=== PATIENT | female | born 1995 | race Caucasian/White ===

== ENCOUNTER 2017-01-13 21:41 | Emergency (ER) | payer OTHER ==
[~2017-01-13] VITALS: Ht 170.2 cm; Wt 90.9 kg
[2017-01-13 22:11] VITALS: BP 113/64; PULSE 116; RESP 12; O2SAT 98
--- NOTE | 2017-01-13 22:19 | ED.REPORT ---
HPI-Back Pain Under 40 Date of Service Jan 13, 2017 ED Provider: Sylvester Zarate DO The patient is a 21 year old female presenting to the ED complaining of bilateral flank pain onset 5 days ago. She claims that the pain got worse yesterday and has been constant since. The patient denies any radiation to the front unless she is wearing tight pants. She says that she is 6 or 7 weeks . Associated symptoms include lightheadedness, nausea, headache, and vomiting. Denied symptoms include dysuria, abnormal vaginal bleedingor discharge , hematuria, cough, or diarrhea. Nursing Notes Stated Complaint: CHRONIC BACK PAIN, NAUSEA, HEADACHE, 6 WKS PREG Chief Complaint: Back Pain or Injury Nursing Notes Reviewed: Yes Allergies: Coded Allergies: No Known Allergies (Unverified , 01/13/17) Scheduled Cephalexin (Keflex) 500 Mg Capsule 500 MG PO QID Scheduled PRN Metoclopramide (Reglan) 10 Mg Tablet 10 MG PO QID PRN PRN For Nausea/Vomiting General Time Seen by MD: 22:19 Chief Complaint Back pain (lower back pain) Hx Obtained From: Patient Arrived By: Walk-in Sudden in Onset?: Yes Onset Occurred: 5 days ago Symptom Duration: Constant Location: : Flank bilateral Quality: Painful Recent Healthcare: No recent doctor visit, No recent hospitalization Similar Sx Previous: No Past Medical History Past Medical History None reported Past Surgical History Denies Smoking History Never Smoker Social History Alcohol Use: Denies alcohol use Drug Use: Denies drug use Other Social History: Good social support Ambulatory Status Independent Review of Systems Respiratory: Denies: Non-productive cough GI: Reports: Nausea, Vomiting, Denies: Diarrhea Female: Denies: Dysuria, Hematuria, Vaginal bleeding - abnl Musculoskeletal: Reports: Back pain Neurologic: Reports: Headache, Lightheaded Complete sys rev & neg: except as marked. Physical Exam Initial Vital Signs Vital Signs (First) Date Time Temp Pulse Resp B/P Pulse Ox O2 Delivery O2 Flow Rate FiO2 01/13/17 22:11 37.5 116 12 113/64 98 Room Air Initial VS: Reviewed, Vital signs normal Head / Eyes: Atraumatic, Normocephalic Lymphatic: No lymphadenopathy Extremities: Vascular intact, Neuro intact Skin: Warm, Dry General/Constitutional: Awake, Alert Distress / Hydration: Positive: Distress mild Mildly uncomfortable Back: Atraumatic, Inspection NL, No CVA tenderness tenderness to palpation at the T/L junction across the back Neurologic: Oriented X3, Speech NL, No motor deficits Neck: Atraumatic, Supple, Full range of motion Respiratory / Chest: Atraumatic, Breath sounds NL, Breath sounds = bilat, No respiratory distress Cardiovascular: Regular rhythm, Heart sounds NL Heart Rate / Rhythm: Positive: Tachycardia Abdomen: Atraumatic, Soft, Non-tender, No guarding, No rebound Interpretation & Diagnostics US: IUP 10 weeks hr 190. Right ovary corpus luteal cyst, no stone, no hydro. Lab Results Interpretation Result Diagram: 01/13/17 2256 01/13/17 2256 Test 01/13/17 22:56 01/13/17 23:07 White Blood Count 12.2th/mm3 (3.8-10.1) Red Blood Count 4.37mil/mm3 (3.90-5.20) Hemoglobin 13.2g/dL (12.0-15.6) Hematocrit 37.3% (35.0-46.0) Mean Corpuscular Volume 85.4fL (81-100) Mean Corpuscular Hemoglobin 30.2pg (27.0-35.0) Mean Corpuscular Hemoglobin Concent 35.4% (32.0-37.0) Red Cell Distribution Width 12.3% (12.3-15.4) Platelet Count 212bil/L (150-400) Neutrophils (%) (Auto) 81.1% (40-74) Lymphocytes (%) (Auto) 11.5% (14-46) Monocytes (%) (Auto) 6.9% (4-12) Eosinophils (%) (Auto) 0.2% (0-5) Basophils (%) (Auto) 0.1% (0-3) Sodium Level 133mEq/L (134-144) Potassium Level 3.3mEq/L (3.5-5.2) Chloride Level 97mEq/L (97-108) Carbon Dioxide Level 22mmol/L (18-29) Blood Urea Nitrogen 6mg/dL (6-20) Creatinine 0.55mg/dL (0.57-1.00) Estimat Glomerular Filtration Rate 198mL/min (>59) Glucose Level 91mg/dL (60-99) Calcium Level 9.0mg/dL (8.5-10.1) Magnesium Level 1.7mg/dL (1.6-2.6) Total Bilirubin 0.9mg/dL (0.0-1.2) Aspartate Amino Transf (AST/SGOT) 26U/L (0-50) Alanine Aminotransferase (ALT/SGPT) 20U/L (0-32) Alkaline Phosphatase 81U/L (25-150) Total Protein 7.3g/dL (6.4-8.4) Albumin 4.1g/dL (3.4-5.0) Lipase 18U/L (13-60) HCG Beta Subunit [id number]/mL Urine Color Yellow (YELLOW) Urine Appearance Cloudy (CLEAR,HAZY) Urine pH 6.0 (5.0-8.0) Urine Specific [place] 1.015 (1.003-1.035) Urine Protein 100mg/dL (NEG,TRACE) Urine Glucose (UA) Negativemg/dL (NEGATIVE) Urine Ketones 15mg/dL (NEGATIVE) Urine Occult Blood Moderate (NEGATIVE) Urine Nitrite Negative (NEGATIVE) Urine Bilirubin Negative (NEGATIVE) Urine Urobilinogen Normalmg/dL (NORMAL) Urine Leukocyte Esterase Large (NEGATIVE) Urine RBC 3-10/hpf (0-2) Urine WBC Packed/hpf (0-5) Urine Epithelial Cells Moderate/hpf (NONE-MOD) Urine Crystals None seen (NONE SEEN) Urine Bacteria Moderate/hpf (NONE-FEW) Urine Hyaline Casts None/lpf (NONE) Urine Granular Casts None seen (NONE SEEN) Urine Waxy Casts None seen (NONE SEEN) Urine Red Blood Cell Casts None seen (NONE SEEN) Urine White Blood Cell Casts None seen (NONE SEEN) Urine Mucus None seen (None Seen) Urine Trichomonas None seen (NONE SEEN) Urine Yeast None (NONE SEEN) Urinalysis Comment None Urine Culture Reflexed Indicated Re-Eval/Medical Decision Med Decision/Clinical Course Likely pyelonephritis in the setting of first trimester . Urine is infected low-grade white blood cell count elevation mild tachycardia. Vomiting is resolved after 1 dose of Reglan. Patient will be given 2 g of IV Rocephin. Ultrasound shows intrauterine without significant hydronephrosis. Patient will be discharged with Keflex and Reglan. Return and follow-up precautions given. Re-Evaluation/Progress : Time of Eval: 01:39 Re-Evaluation/Progress Note: Patient rechecked. She is feeling better and claims she has not vomited. Discussed plan to discharge. She understands and agrees with the plan. All questions addressed at this time. Counseled Regarding: Diagnosis, Lab results, Need for follow-up, When/why to return to ED Discharge & Departure Impression: Primary Impression: First trimester Additional Impression: Pyelonephritis affecting Disposition: Home All VS Reviewed: Yes Condition: Improved Additional Instructions: You have a kidney infection. Take Keflex as prescribed. Use Reglan as needed for nausea and vomiting. Follow up with your [employer] in 2 days as planned. Return to the ER as needed for fever, persistent vomiting, worsening pain, or other concerns. [employer] Attestation Portions of this note were transcribed by Titi Hernandez. I, Dr. Zarate personally performed the history, physical exam and medical decision-making; I reviewed and confirmed the accuracy of the information in the transcribed note. Signed by: Rick Arroyo, 01/13/2017 Sylvester Zarate DO Jan 13, 2017 22:19 Jan 13, 2017 22:28
[2017-01-13] MEDS ORDERED: 0.9% Sodium Chloride 1,000 ML IV ONE (22:24)
[2017-01-13] MEDS ORDERED: MetoCLOpramide 5 mg/mL 2 mL Inj IVPUSH ONE (22:25)
[2017-01-13 23:05] LABS: BASOPHILS % (AUTO) 0.1 % (0-3); EOSINOPHILS % (AUTO) 0.2 % (0-5); MONOCYTES % (AUTO) 6.9 % (4-12); Mean Corpuscular Hemoglobin 30.2 pg (27.0-35.0); Mean Corpuscular Volume 85.4 fL (81-100); NEUTROPHILS % (AUTO) 81.1 % (40-74); Platelet Count 212 bil/L (150-400)
[2017-01-13 23:19] LABS: APPEARANCE,URINE CLOUDY (CLEAR,HAZY); COLOR,URINE YELLOW (YELLOW); OCCULT BLOOD,URINE MODERATE (NEGATIVE); UROBILINOGEN,URINE NORMAL (NORMAL)
[2017-01-13 23:39] LABS: Magnesium 1.7 mg/dL (1.6-2.6)
[2017-01-14] MEDS ORDERED: cefTRIAXone Inj 2,000 MG in Dextrose 5% Minibag Plus 50 ML IV ONE (00:40)
[2017-01-14 01:46] VITALS: BP 131/61; PULSE 99
[2017-01-14] MEDS ORDERED: CEPH-512 PO (01:47)
[2017-01-14] MEDS ORDERED: METO-301 PO (01:47)
--- NOTE | 2017-01-14 10:42 | DRSVH ---
PROCEDURE: US OB<14 WKS+OB TRANSVAG INDICATIONS: bilateral flank pain, eval for IUP also OUTSIDE/PRIOR DATING DATA: Last menstrual period (LMP): Unknown. LMP-based estimated date of delivery (CASEY): Unknown. First dating scan (date and location): 01/14/17. Estimated date of delivery (CASEY) from first dating scan: 08/08/17. TECHNIQUE: Real-time scanning was performed of the fetus and maternal pelvic organs, with image documentation. Endovaginal scanning was also performed to better visualize the fetus and maternal ovaries. COMPARISON: None. FINDINGS: Embryo: An intrauterine is identified with heart tones of 190 beats per minute. [place] -rump length measures 3.7 cm corresponding to 10 weeks 4 days. Measurement variability in dating: +/- 4 weeks by LMP, +/- 7 days by mean sac diameter (use before 6 weeks gestation if crown-rump length not able to be measured), +/- 5 days by crown-rump length (up t o 8 weeks 6 days gestation), +/- 7 days by crown-rump length (up to 13 weeks 6 days gestation). Maternal organs: Ovaries are unremarkable with the exception of a minute right corpus luteal cyst. Limited images through the kidneys demonstrate no hydronephrosis. IMPRESSION: 1. Single live intrauterine as above. 2. No hydronephrosis or renal calculi. Dictated by: Marcelle Stanley M.D. on 01/14/2017 at 10:39 Approved by: Marcelle Stanley M.D. on 01/14/2017 at 10:40
== END 2017-01-14 02:24 | disposition home or self-care (01) ==
LOC: SED 21:41
DX: O26.891 Other specified pregnancy related conditions, first trimester (principal); N12 Tubulo-interstitial nephritis, not specified as acute or chronic; B96.20 Unspecified Escherichia coli [E. coli] as the cause of diseases classified elsewhere; R42 Dizziness and giddiness; R51 Headache; Z3A.01 Less than 8 weeks gestation of pregnancy
CPT/HCPCS: 36415; 76801; 76817; 80053; 81000; 81025; 83690; 83735; 84702; 85025; 87086; 87088; 87186; 96361; 96365; 96375; 99285; J0696; J2765; J7030